=== PATIENT | female | born 1955 | race Caucasian/White ===

== ENCOUNTER 2017-07-31 16:10 | Outpatient (CLI) | payer OTHER ==
--- NOTE | 2017-08-06 11:03 | Mammography Report ---
DIGITAL SCREENING MAMMOGRAM: 07/31/2017 CLINICAL INDICATION: A 61-year-old with history of benign left breast biopsy for screening. COMPARISON: Report of previous ultrasound biopsy 09/04/2005. TECHNIQUE: Routine CC and MLO projections were obtained of the breasts. FINDINGS: The breasts demonstrate scattered fibroglandular densities bilaterally. Post-biopsy changes in the left breast are noted. Coarse, typically benign calcifications are present. No suspicious masses, clustered microcalcifications, or regions of architectural distortion are identified. IMPRESSION: BENIGN FINDINGS. RECOMMENDATION: Routine annual screening unless otherwise clinically indicated. BI-RADS CATEGORY 2 - BENIGN FINDINGS. STANDARD QUALIFYING STATEMENTS: 1. This examination was reviewed with the aid of Computer-Aided Detection (CAD) . 2. A negative or benign imaging report should not delay biopsy if clinically suspicious findings are present. Consider surgical consultation if warranted. More than 5 % of cancers are not identified by imaging. 3. Dense breasts may obscure an underlying neoplasm. TD: 08/06/2017 10:40 MARIAH
== END 2017-07-31 16:11 | disposition home or self-care (01) ==
LOC: DI.N 16:10
PROVIDERS: ATTEND Nurse Practitioner Gerontology
DX: Z12.31 Encounter for screening mammogram for malignant neoplasm of breast (principal)
CPT/HCPCS: 77067

== ENCOUNTER 2017-10-10 11:15 | Day surgery (SDC) | payer OTHER ==
[2017-10-10] MEDS ORDERED: LACTATED RINGERS 1,000 ML IV ONE (11:56)
[2017-10-10] MEDS ORDERED: MIDAZOLAM 2 MG/2 ML VIAL IVP ONE (13:35)
[2017-10-10] MEDS ORDERED: fentaNYL 250 MCG/5 ML VIAL IVP ONE (13:35)
[2017-10-10 14:34] VITALS: BP 104/59
== END 2017-10-10 11:16 | disposition home or self-care (01) ==
LOC: SDS 11:15
PROVIDERS: ATTEND Internal Medicine Gastroenterology
PROC: 0DJD8ZZ Inspection of Lower Intestinal Tract, Via Natural or Artificial Opening Endoscopic (ICD-10-PCS; principal; 2017-10-10 12:15)
DX: Z12.11 Encounter for screening for malignant neoplasm of colon (principal); E66.9 Obesity, unspecified; Z68.32 Body mass index [BMI] 32.0-32.9, adult
CPT/HCPCS: 45378; J3010; J7120

== ENCOUNTER 2018-03-04 09:29 | Outpatient (CLI) | payer OTHER | END 2018-03-04 23:59 | disposition home or self-care (01) | LOC: RT.N 09:29 | PROVIDERS: ATTEND Nurse Practitioner Gerontology | DX: Z13.9 Encounter for screening, unspecified (principal) | CPT/HCPCS: 93005 ==

== ENCOUNTER 2018-03-04 10:09 | Outpatient (CLI) | payer OTHER ==
[2018-03-04 14:36] LABS: BASOPHILS % (AUTO) 0.9 %; EOSINOPHILS # (AUTO) 0.2 10^3/uL (0.0-0.7); EOSINOPHILS % (AUTO) 4.1 %; HGB - HEMOGLOBIN 14.1 g/dL (12.0-16.0); LYMPHOCYTES # (AUTO) 1.5 10^3/uL (1.5-3.5); LYMPHOCYTES % (AUTO) 30.4 %; MEAN CORPUSCULAR HGB CONC 33.4 g/dL (32.0-36.0); MEAN PLATELET VOLUME 8.6 fL (7.9-10.8); MONOCYTES # (AUTO) 0.7 10^3/uL (0.0-1.0); MONOCYTES % (AUTO) 13.8 %; NEUTROPHILS # (AUTO) 2.5 10^3/uL (1.5-6.6); NEUTROPHILS % (AUTO) 50.8 %; PLT - PLATELET COUNT 274 10^3/uL (130-450); RED BLOOD COUNT 4.55 10^6/uL (4.20-5.40)
[2018-03-04 15:01] LABS: ALBUMIN 4.2 g/dL (3.2-5.5); ALBUMIN/GLOBULIN RATIO 1.4 (1.0-2.2); CALCIUM 9.3 mg/dL (8.5-10.3); CREATININE 0.7 mg/dL (0.4-1.0); TOTAL PROTEIN 7.3 g/dL (6.7-8.2)
== END 2018-03-04 23:59 | disposition home or self-care (01) ==
LOC: LAB.N 10:09
PROVIDERS: ATTEND Nurse Practitioner Gerontology
DX: Z13.9 Encounter for screening, unspecified (principal)
CPT/HCPCS: 36415; 80053; 85025; 87640

== ENCOUNTER 2018-04-07 09:20 | Outpatient (CLI) | payer OTHER | END 2018-04-07 09:21 | disposition home or self-care (01) | LOC: LAB 09:20 | PROVIDERS: ATTEND Orthopaedic Surgery | DX: Z01.812 Encounter for preprocedural laboratory examination (principal); M17.11 Unilateral primary osteoarthritis, right knee | CPT/HCPCS: 36415; 86850; 86900; 86901 ==

== ENCOUNTER 2018-04-08 06:53 | Inpatient (IN) | payer OTHER ==
[~2018-04-08 06:53] MED LIST: ACETAMINOPHEN 1,000 MG/100 ML 100 ML IV ONE; LACTATED RINGERS 1,000 ML IV ONE; ceFAZolin 2 GM/50 ML 2 GM/50 ML BAG IV ONE
[2018-04-08] MEDS ORDERED: EPINEPHrine 1 MG/ML AMP ONE (06:58)
[2018-04-08] MEDS ORDERED: ROPIVACAINE 0.5% PF 20 ML AMPULE ONE ×2 (06:59→10:59)
[2018-04-08] MEDS ORDERED: SODIUM CHLORIDE 0.9% 30 ML ONE (07:00)
[2018-04-08] MEDS ORDERED: BUPIVACAINE 0.5% PF 30 ML VIAL ONE (07:01)
--- NOTE | 2018-04-08 07:18 | ANESTHESIA ---
Pre-Anesthesia VS, & Labs - Diagnosis Right knee osteoarthritis - Procedure Right toal knee arthroplasty Vital Signs: Temp Pulse Resp BP Pulse Ox 36.4 C L 96 18 145/92 H 97 04/08/18 07:04 04/08/18 07:04 04/08/18 07:04 04/08/18 07:04 04/08/18 07:04 Height 5 ft 9 in Weight (kg) 103.7 kg Body Mass Index 30.9 - NPO >8 hours - Is Patient ?: No - Lab Results Lab results reviewed: Yes Home Medications and Allergies Home Medications: Ambulatory Orders No Known Home Medications 04/03/18 No Known Home Medications 04/03/18 Allergies/Adverse Reactions: Allergies Allergy/AdvReac Type Severity Reaction Status Date / Time No Known Drug Allergies Allergy Verified 10/09/17 07:36 Anes History & Medical History - Anesthetic History Anesthesia Complications: reports: No previous complications, Post-Operative Nausea/Vomiting Family history of Anesthesia Complications: Denies Family history of Malignant Hyperthermia: Denies - Medical History Cardiovascular: reports: None Pulmonary: reports: None Gastrointestinal: reports: None Urinary: reports: Incontinence, Nocturia Neuro: reports: None Musculoskeletal: reports: Osteoarthritis Endocrine/Autoimmune: reports: None Blood Disorders: reports: None Skin: reports: None Smoking Status: Never smoker Psychosocial: reports: No issues indicated - Surgical History General: Colonoscopy Eyes Ears Nose Throat (EENT): Rhinoplasty, Tonsil/Adenoidectomy Neurologic: Other (Neck fusion as a child s/p gymnastics accident) Orthopedic: Knee replacement, Other Exam General: Alert, Oriented x3 Dental: WNL Mouth Opening: Greater than 4 Fingerbreadths Neck Mobility: Normal Mallampati classification: I Thyromental Distance: greater than 6 cm Respiratory: Lungs clear Cardiovascular: Regular rate Mental/Cognitive Status: Alert/Oriented X3 Cognitive Status: Within normal limits Plan Anesthesia Type: Spinal Consent for Procedure(s) Verified and Reviewed: Yes Code Status: Attempt Resuscitation ASA classification: 2-Mild systemic disease Is this case an emergency?: No
[2018-04-08] MEDS ORDERED: MORPHINE PF 5 MG/10 ML AMP SUBQ ONE (08:57)
[2018-04-08] MEDS ORDERED: KETOROLAC 15 MG/ML VIAL IVP ONE (08:57)
[2018-04-08] MEDS ORDERED: EPINEPHrine 1 MG/ML AMP IVP ONE (08:58)
[2018-04-08] MEDS ORDERED: BUPIVACAINE 0.5% PF 30 ML VIAL SUBQ ONE ×2 (08:59)
[2018-04-08] MEDS ORDERED: ROPIVACAINE 0.2% PF 20 ML AMPULE SUBQ ONE (08:59)
[2018-04-08] MEDS ORDERED: MORPHINE PF 5 MG/10 ML AMP EP ONE (09:32)
[2018-04-08] MEDS ORDERED: LIDOCAINE-MPF 2% 5 ML VIAL IM ONE (09:32)
[2018-04-08] MEDS ORDERED: MIDAZOLAM 2 MG/2 ML VIAL IVP ONE (09:32)
[2018-04-08] MEDS ORDERED: KETOROLAC 30 MG/ML VIAL IVP ONE (09:32)
[2018-04-08] MEDS ORDERED: PROPOFOL 200 MG/20 ML VIAL IVP ONE (09:32)
[2018-04-08] MEDS ORDERED: ceFAZolin 2 GM/50 ML 2 GM/50 ML BAG IV ONE (09:32)
[2018-04-08] MEDS ORDERED: LACTATED RINGERS 1,000 ML IV ONE ×2 (10:14→11:50)
[2018-04-08] MEDS ORDERED: ACETAMINOPHEN 1,000 MG/100 ML 100 ML IV PRN (10:26)
[2018-04-08] MEDS ORDERED: ONDANSETRON 4 MG/2 ML VIAL IVP PRN (10:26)
[2018-04-08] MEDS ORDERED: PROCHLORPERAZINE 10 MG/2 ML VIAL IVP PRN (10:26)
[2018-04-08] MEDS: fentaNYL 100 MCG/2 ML VIAL ONE ×2 (10:32→10:38)
--- NOTE | 2018-04-08 10:33 | OPERATIVE REPORT ---
Operative Report - General Admit Date: 04/08/18 Procedure Date: 04/08/18 Planned Procedure: right TKA Pre-Op Diagnosis: Right knee DJD Procedure Performed: Right knee TKA Post Op Diagnosis: same - Procedure Note Primary Surgeon: sindhu Anesthesia Technique: Combo spinal/epidural Estimated Blood Loss (mL): 25
[2018-04-08] MEDS: HYDROmorphone 0.5 MG/0.5 ML SYRINGE ONE ×2 (10:46→10:54)
[2018-04-08] MEDS ORDERED: HYDROmorphone 0.5 MG/0.5 ML SYRINGE ONE (10:57)
[2018-04-08] MEDS ORDERED: ROPIVACAINE 0.5% PF 20 ML AMPULE EP ONE (10:59)
[2018-04-08] MEDS ORDERED: DEXAMETHASONE 4 MG/ML VIAL IVP ONE (10:59)
[2018-04-08] MEDS: LACTATED RINGERS 1,000 ML IV SCH ×2 (11:55→19:33)
--- NOTE | 2018-04-08 12:05 | XRAY Report ---
Reason: post op Procedure Date: 04/08/2018 Accession Number: [id number] / [id number] Procedure: XR - Knee 2 View RT CPT Code: FULL RESULT: EXAM: RIGHT KNEE RADIOGRAPHY EXAM DATE: 04/08/2018 11:51 AM. CLINICAL HISTORY: Post op. COMPARISON: KNEE 3 VIEW RT 04/02/2018 9:38 AM. TECHNIQUE: 2 views. FINDINGS: Bones and Joints: No fractures or bone lesion. A 3 component right knee arthroplasty has been performed. There is expected alignment of components. No unexpected periprosthetic lucency or other evidence of loosening. Soft Tissues: There is a small knee joint effusion and gas within the joint space, consistent with recent prior surgery. Soft tissue swelling and soft tissue gas are present. IMPRESSION: Expected immediate postoperative appearance of right knee arthroplasty. RADIA
[2018-04-08 13:39] LABS: BASOPHILS % (AUTO) 0.2 %; EOSINOPHILS # (AUTO) 0.1 10^3/uL (0.0-0.7); EOSINOPHILS % (AUTO) 0.9 %; LYMPHOCYTES # (AUTO) 1.4 10^3/uL (1.5-3.5); LYMPHOCYTES % (AUTO) 12.2 %; MEAN CORPUSCULAR HEMOGLOBIN 30.8 pg (27.0-31.0); MEAN CORPUSCULAR HGB CONC 33.6 g/dL (32.0-36.0); MEAN CORPUSCULAR VOLUME 91.5 fL (81.0-99.0); MONOCYTES # (AUTO) 0.5 10^3/uL (0.0-1.0); MONOCYTES % (AUTO) 4.3 %; NEUTROPHILS # (AUTO) 9.5 10^3/uL (1.5-6.6); NEUTROPHILS % (AUTO) 82.4 %; PLT - PLATELET COUNT 227 10^3/uL (130-450); RED CELL DISTRIBUTION WIDTH 13.1 % (12.0-15.0); WHITE BLOOD COUNT 11.5 x10^3/uL (4.8-10.8)
[2018-04-08 13:48] LABS: CALCIUM 8.4 mg/dL (8.5-10.3); CREATININE 0.6 mg/dL (0.4-1.0)
[2018-04-08] MEDS: HYDROmorphone 0.5 MG/0.5 ML SYRINGE IVP PRN (13:48)
[2018-04-08] MEDS: SODIUM CHLORIDE FLUSH 0.9% 10 ML SYRINGE IVP PRN ×3 (13:48→13:57)
[2018-04-08] MEDS: HYDROcod/ACETAM 5/325 MG TABLET PO PRN ×2 (14:52→23:38)
[2018-04-08] MEDS: ceFAZolin 2 GM/50 ML 2 GM/50 ML BAG IV SCH ×2 (14:57→23:38)
--- NOTE | 2018-04-08 15:24 | OPERATIVE REPORT ---
DATE OF SERVICE: 04/08/2018 Physician: Stewart Paez MD PREOPERATIVE DIAGNOSIS: Right knee osteoarthritis. POSTOPERATIVE DIAGNOSIS: Right knee osteoarthritis. PROCEDURE PERFORMED: Right total knee replacement arthroplasty. OPERATING SURGEON: Andrea Paez MD. ANESTHESIA: Spinal and sedation by Dr. Orellana. INDICATIONS FOR SURGERY: Amy is a 62-year-old female who has been followed in the clinic with nonop erative management of right knee arthritis. She has reached a point of diminishing response to care and increasing functional limitation to the point she desires total knee arthroplasty. The patient's prior medical history and physical exam are documented in her admission record. FINDINGS AT SURGERY: The patient's knee is found to have full extension and flexion to 110 degrees a ssociated with moderate effusion and definite crepitus of the knee and slight valgus alignment. At o pen surgery, she has extensive osteoarthritis of her knee associated with osteophytes and minor loose bodies, and she is noted to have mild synovitis of the knee and during surgery was noted to have bee y hard bone density. DESCRIPTION OF OPERATIVE PROCEDURE: The patient was taken to the operating room and was given a spin al anesthetic, followed by sedation in a supine position. A tourniquet was placed on her thigh, and her knee and leg were sterilely prepped and draped in standard fashion. The surgical timeout was und ertaken, followed by exsanguination of the limb and tourniquet inflation to 325 mmHg. The patient's knee was approached through a curved medial incision and medial parapatellar retinacular incision wit h the patella being able to be everted and dislocated laterally. This allowed flexion of the knee an d exposure of the knee joint with resection of the ACL and the anterior horns of medial and lateral m enisci. A central medullary hole was made in the femur for which the distal cutting block was applie d and situated on the femur and the distal femoral cut made. Following this, the femur sized to a si ze 9 for the Persona implant and the 4-in-1 cutting block was applied and the cuts made, protecting l igamentous tissues with retractors. Following this, the tibial area was exposed and the tibia sublux ated anteriorly, at which point the remaining meniscal posterior horns were excised and cautery used to control minor bleeding in the field. The external alignment tower was applied and adjusted for pr oper length and tibial slope and rotation. It was affixed to the tibia and the proximal cut was made , protecting the ligamentous tissue. A size D was chosen for the tibial base plate size and affixed to the proximal cut surface and drilling and a broach were inserted for shaping of the proximal tibia to receive the implant. Trial reduction was made utilizing a spacer; in this case, 12 mm was accept able, recreating stability and varus, valgus and Izzy exam. The patient's patella was exposed and measured 23 mm, after which an 8 and 1/2 resection was made. The patella was drilled, and it was det ermined that replacement would resize back to essentially her sycuan height of patella, and it tracke d beautifully with a slight lateral release performed. The trial components were removed. The knee was flushed, irrigated and all surfaces dried. The components for implantation were brought into the field, and initially the cement was placed on the tibia tray, which was cemented into place, followe d by the femoral component and then with insertion of the poly and removal of all excess cement, and finally with insertion and clamping of the patella in place. When all cement had hardened and excess was removed, clamps were removed and the knee was cycled and was stable and proper seating and engage ment were noted. The knee was flushed again and irrigated and the tourniquet was deflated. Minor ca utery was used to control bleeding, followed by closure with FiberWire closure of the capsule of the knee, followed by interrupted Vicryl closure of subcutaneous tissue and Monocryl closure of skin. A sterile dressing was applied, followed by a bulky compression dressing, and the patient was then flores sported to an OR [place] and taken to the recovery room in stable condition. ESTIMATED BLOOD LOSS: 25 mL COMPLICATIONS: None. COUNTS: Sponge and needle counts correct. IMPLANTS USED: The patient's total knee arthroplasty is a cemented Persona knee, size 9. Normal femo ral component, a size D baseplate tibial tray with a 12 mm medial congruent poly insert, the patella being a 29 mm diameter, 8.5 mm thick, all poly patella. Cement used was Joceline cement with antibioti cs. TD: 04/08/2018 14:04
[2018-04-08] MEDS: ASPIRIN 325 MG TABLET PO SCH (17:11)
[2018-04-08] MEDS: SODIUM CHLORIDE FLUSH 0.9% 10 ML SYRINGE IVP SCH ×2 (17:12→23:42)
[2018-04-09] MEDS: HYDROcod/ACETAM 5/325 MG TABLET PO PRN ×4 (04:27→21:26)
[2018-04-09] MEDS: LACTATED RINGERS 1,000 ML IV SCH (06:27)
--- NOTE | 2018-04-09 07:02 | PROVIDER PROGRESS NOTE ---
Subjective - General Admit Date: 04/08/18 Procedure Date: 04/08/18 Post Op Days: 1 - Review of Systems Wound/Incisions: positive: Dressing dry and intact Musculoskeletal: positive: Joint pain, Joint swelling Objective - Patient Data Reviewed Vital Signs: Yes Vital Signs: Vital Signs x48h Temp Pulse Resp BP Pulse Ox 04/09/18 04:18 36.6 C 66 16 116/62 94 04/08/18 23:35 36.5 C 64 18 112/64 93 Weight: Weight 04/07/18 04/08/18 04/09/18 23:59 23:59 23:59 Weight (kg) 103.7 kg Intake & Output: Intake and Output Totals x24h 04/07/18 04/08/18 04/09/18 23:59 23:59 23:59 Intake Total 4040 1050 Output Total 1550 1050 Balance 2490 0 - Lab Results Lab Results: 04/08/18 13:30 04/08/18 13:30 Other Lab Results: Lab Results x24hrs 04/08/18 04/08/18 Range/Units 13:30 13:30 WBC 11.5 H (4.8-10.8) x10^3/uL RBC 3.90 L (4.20-5.40) 10^6/uL Hgb 12.0 (12.0-16.0) g/dL Hct 35.7 L (37.0-47.0) % MCV 91.5 (81.0-99.0) fL MCH 30.8 (27.0-31.0) pg MCHC 33.6 (32.0-36.0) g/dL RDW 13.1 (12.0-15.0) % Plt Count 227 (130-450) 10^3/uL MPV 8.0 (7.9-10.8) fL Neut # (Auto) 9.5 H (1.5-6.6) 10^3/uL Lymph # (Auto) 1.4 L (1.5-3.5) 10^3/uL [place] # (Auto) 0.5 (0.0-1.0) 10^3/uL Eos # (Auto) 0.1 (0.0-0.7) 10^3/uL Baso # (Auto) 0.0 (0.0-0.1) 10^3/uL Absolute Nucleated RBC 0.00 x10^3/uL Nucleated RBC % 0.0 /100WBC Sodium 138 (135-145) mmol/L Potassium 3.8 (3.5-5.0) mmol/L Chloride 105 (101-111) mmol/L Carbon Dioxide 27 (21-32) mmol/L Anion Gap 6.0 (6-13) BUN 17 (6-20) mg/dL Creatinine 0.6 (0.4-1.0) mg/dL Estimated GFR (MDRD) 102 (>89) Glucose 139 H (70-100) mg/dL Calcium 8.4 L (8.5-10.3) mg/dL - Imaging Results Radiology Imaging: positive: EMP read indepedently - Current Medications Current Medications: Current Medications Generic Name Dose Route Start Last Admin Trade Name Freq PRN Reason Stop Dose Admin Hydrocodone Bitart/Acetaminophen 1 tab 04/08/18 10:04/09/18 04:27 [place] 5/325 PO 1 tab Q4HR PRN Administration PAIN Aspirin 325 mg 04/08/18 17:00 04/08/18 17:11 Crissy PO 325 mg BIDWM STEPHANIA Administration Hydromorphone HCl 0.5 mg 04/08/18 10:04/08/18 13:48 Dilaudid Inj Syringe IVP 0.5 mg Q2H PRN Administration PAIN Lactated Ringer's 1,000 mls @ 100 mls/hr 04/08/18 11:00 04/09/18 06:27 Lr IV 100 mls/hr .Q10H STEPHANIA Administration Ondansetron HCl 4 mg 04/08/18 10:04/08/18 13:48 Zofran Inj IVP 4 mg Q6HR PRN Administration Nausea / Vomiting Sodium Chloride 10 ml 04/08/18 17:00 04/08/18 23:42 Normal Saline Flush 0.9% IVP Not Given 0100,0900,1700 STEPHANIA Sodium Chloride 10 ml 04/08/18 10:04/08/18 13:57 Normal Saline Flush 0.9% IVP 10 ml PRN PRN Administration NEEDED PER PROVIDER ORDERS - Physical Exam Wound/Incisions: positive: Dressing dry and intact General Appearance: positive: No acute distress Extremities: positive: Joint swelling Neurologic/Psychiatric: positive: Oriented x3, CN's nml (2-12), Motor nml, Sensation nml Impression/Plan - Problem List Problem List: POD #1 Pt is fairly comfortable. She is ready to begin PT Will plan on advancing diet, and d/c IV to saline lock.
[2018-04-09] MEDS: SODIUM CHLORIDE FLUSH 0.9% 10 ML SYRINGE IVP SCH ×5 (07:46→23:33)
[2018-04-09] MEDS: ASPIRIN 325 MG TABLET PO SCH ×2 (08:24→17:16)
[2018-04-09] MEDS: HYDROmorphone 0.5 MG/0.5 ML SYRINGE IVP PRN (10:32)
--- NOTE | 2018-04-09 11:18 | PROVIDER PROGRESS NOTE ---
Subjective - Prog Note Date Prog Note Date: 04/09/18 Prog Note Time: 11:17 - Subjective Pt reports feeling: Improved (This patient is expected to be discharged before 96 hours of inpatient hospitalizationh) Objective - Vital Signs/Intake & Output Vital Signs: Vital Signs x48h Temp Pulse Resp BP Pulse Ox 04/09/18 07:53 36.9 C 69 16 118/58 L 96 04/09/18 04:18 36.6 C 66 16 116/62 94 Intake & Output: Intake & Output 04/06/18 04/07/18 04/08/18 04/09/18 23:59 23:59 23:59 23:59 Intake Total 4040 1400 Output Total 1550 1450 Balance 2490 -50 - Lab Results Fish Bones: 04/08/18 13:30 04/08/18 13:30 Other Labs: Lab Results x24hrs 04/08/18 04/08/18 Range/Units 13:30 13:30 WBC 11.5 H (4.8-10.8) x10^3/uL RBC 3.90 L (4.20-5.40) 10^6/uL Hgb 12.0 (12.0-16.0) g/dL Hct 35.7 L (37.0-47.0) % MCV 91.5 (81.0-99.0) fL MCH 30.8 (27.0-31.0) pg MCHC 33.6 (32.0-36.0) g/dL RDW 13.1 (12.0-15.0) % Plt Count 227 (130-450) 10^3/uL MPV 8.0 (7.9-10.8) fL Neut # (Auto) 9.5 H (1.5-6.6) 10^3/uL Lymph # (Auto) 1.4 L (1.5-3.5) 10^3/uL [place] # (Auto) 0.5 (0.0-1.0) 10^3/uL Eos # (Auto) 0.1 (0.0-0.7) 10^3/uL Baso # (Auto) 0.0 (0.0-0.1) 10^3/uL Absolute Nucleated RBC 0.00 x10^3/uL Nucleated RBC % 0.0 /100WBC Sodium 138 (135-145) mmol/L Potassium 3.8 (3.5-5.0) mmol/L Chloride 105 (101-111) mmol/L Carbon Dioxide 27 (21-32) mmol/L Anion Gap 6.0 (6-13) BUN 17 (6-20) mg/dL Creatinine 0.6 (0.4-1.0) mg/dL Estimated GFR (MDRD) 102 (>89) Glucose 139 H (70-100) mg/dL Calcium 8.4 L (8.5-10.3) mg/dL
[2018-04-09] MEDS: KETOROLAC 30 MG/ML VIAL IVP PRN ×2 (12:42→18:39)
[2018-04-09] MEDS: SODIUM CHLORIDE FLUSH 0.9% 10 ML SYRINGE IVP PRN (18:39)
[2018-04-10] MEDS: KETOROLAC 30 MG/ML VIAL IVP PRN ×3 (00:47→17:24)
[2018-04-10] MEDS: SODIUM CHLORIDE FLUSH 0.9% 10 ML SYRINGE IVP PRN ×2 (00:48→17:24)
[2018-04-10] MEDS: HYDROcod/ACETAM 5/325 MG TABLET PO PRN ×4 (02:01→18:50)
[2018-04-10 05:48] LABS: BASOPHILS % (AUTO) 0.4 %; EOSINOPHILS # (AUTO) 0.2 10^3/uL (0.0-0.7); EOSINOPHILS % (AUTO) 1.6 %; HGB - HEMOGLOBIN 11.5 g/dL (12.0-16.0); LYMPHOCYTES # (AUTO) 2.2 10^3/uL (1.5-3.5); LYMPHOCYTES % (AUTO) 23.3 %; MEAN CORPUSCULAR HEMOGLOBIN 31.1 pg (27.0-31.0); MEAN CORPUSCULAR VOLUME 94.1 fL (81.0-99.0); MEAN PLATELET VOLUME 8.1 fL (7.9-10.8); MONOCYTES # (AUTO) 0.9 10^3/uL (0.0-1.0); MONOCYTES % (AUTO) 9.4 %; NEUTROPHILS # (AUTO) 6.2 10^3/uL (1.5-6.6); NEUTROPHILS % (AUTO) 65.3 %; PLT - PLATELET COUNT 210 10^3/uL (130-450); RED BLOOD COUNT 3.71 10^6/uL (4.20-5.40); RED CELL DISTRIBUTION WIDTH 13.1 % (12.0-15.0); WHITE BLOOD COUNT 9.5 x10^3/uL (4.8-10.8)
[2018-04-10] MEDS: SODIUM CHLORIDE FLUSH 0.9% 10 ML SYRINGE IVP SCH ×3 (08:59→23:30)
[2018-04-10] MEDS: ASPIRIN 325 MG TABLET PO SCH ×2 (08:59→17:24)
[2018-04-10] MEDS: SENNA 8.6 MG TABLET PO SCH (08:59)
[2018-04-10] MEDS: DOCUSATE SODIUM 100 MG CAPSULE PO PRN (08:59)
--- NOTE | 2018-04-10 09:26 | PROVIDER PROGRESS NOTE ---
Subjective - General Admit Date: 04/08/18 Procedure Date: 04/08/18 Post Op Days: 2 - Review of Systems Wound/Incisions: positive: Dressing dry and intact Musculoskeletal: positive: Joint pain, Joint swelling Objective - Patient Data Reviewed Vital Signs: Yes Vital Signs: Vital Signs x48h Temp Pulse Resp BP BP Pulse Ox 04/10/18 07:44 36.5 C 79 20 121/64 96 04/10/18 04:00 36.9 C 84 20 141/72 H 95 Weight: Weight 04/08/18 04/09/18 04/10/18 23:59 23:59 23:59 Weight (kg) 103.7 kg Intake & Output: Intake and Output Totals x24h 04/08/18 04/09/18 04/10/18 23:59 23:59 23:59 Intake Total 4040 2760 370 Output Total 1550 1450 Balance 2490 1310 370 - Lab Results Lab Results: 04/10/18 05:10 04/08/18 13:30 Other Lab Results: Lab Results x24hrs 04/10/18 Range/Units 05:10 WBC 9.5 (4.8-10.8) x10^3/uL RBC 3.71 L (4.20-5.40) 10^6/uL Hgb 11.5 L (12.0-16.0) g/dL Hct 34.9 L (37.0-47.0) % MCV 94.1 (81.0-99.0) fL MCH 31.1 H (27.0-31.0) pg MCHC 33.0 (32.0-36.0) g/dL RDW 13.1 (12.0-15.0) % Plt Count 210 (130-450) 10^3/uL MPV 8.1 (7.9-10.8) fL Neut # (Auto) 6.2 (1.5-6.6) 10^3/uL Lymph # (Auto) 2.2 (1.5-3.5) 10^3/uL [place] # (Auto) 0.9 (0.0-1.0) 10^3/uL Eos # (Auto) 0.2 (0.0-0.7) 10^3/uL Baso # (Auto) 0.0 (0.0-0.1) 10^3/uL Absolute Nucleated RBC 0.01 x10^3/uL Nucleated RBC % 0.1 /100WBC - Current Medications Current Medications: Current Medications Generic Name Dose Route Start Last Admin Trade Name Freq PRN Reason Stop Dose Admin Hydrocodone Bitart/Acetaminophen 1 tab 04/08/18 10:26 04/10/18 06:05 [place] 5/325 PO 1 tab Q4HR PRN Administration PAIN Aspirin 325 mg 04/08/18 17:00 04/10/18 08:59 Crissy PO 325 mg BIDWM STEPHANIA Administration Docusate Sodium 100 mg 04/08/18 10:26 04/10/18 08:59 Colace 100mg Capsule PO 100 mg BID PRN Administration Constipation Hydromorphone HCl 0.5 mg 04/08/18 10:26 04/09/18 10:32 Dilaudid Inj Syringe IVP 0.5 mg Q2H PRN Administration PAIN Ketorolac Tromethamine 30 mg 04/09/18 08:39 04/10/18 00:47 Toradol Inj (30mg) IVP 04/10/18 18:00 30 mg Q6HR PRN Administration PAIN Ondansetron HCl 4 mg 04/08/18 10:26 04/08/18 13:48 Zofran Inj IVP 4 mg Q6HR PRN Administration Nausea / Vomiting Senna 8.6 - 17.2 mg 04/10/18 09:00 04/10/18 08:59 Senokot PO 8.6 mg DAILY STEPHANIA Administration Sodium Chloride 10 ml 04/08/18 17:00 04/10/18 08:59 Normal Saline Flush 0.9% IVP 10 ml 0100,0900,1700 STEPHANIA Administration Sodium Chloride 10 ml 04/08/18 10:26 04/10/18 00:48 Normal Saline Flush 0.9% IVP 10 ml PRN PRN Administration NEEDED PER PROVIDER ORDERS - Physical Exam Extremities: positive: Joint swelling Neurologic/Psychiatric: positive: Oriented x3, CN's nml (2-12), Motor nml, Sensation nml, Mood/affect nml Impression/Plan - Problem List Problem List: POD #2: Pt is having some pain and occasional nausea with activity (PT) plan to have patient continue with PT. D/C to home tomorrow. dressing change prior to d/c
[2018-04-10] MEDS ORDERED: MAGNESIUM HYDROXIDE 2,400 MG/30 ML UDC PO ONE (18:00)
[2018-04-10] MEDS: ACETAMINOPHEN 325 MG TABLET PO PRN (23:29)
[2018-04-11] MEDS: DOCUSATE SODIUM 100 MG CAPSULE PO PRN (06:44)
[2018-04-11] MEDS: ACETAMINOPHEN 325 MG TABLET PO PRN (06:44)
[2018-04-11] MEDS: SODIUM CHLORIDE FLUSH 0.9% 10 ML SYRINGE IVP SCH (08:50)
[2018-04-11] MEDS: ASPIRIN 325 MG TABLET PO SCH (08:50)
--- NOTE | 2018-04-11 10:16 | Discharge Plan ---
Discharge Plan Disposition: 01 Home, Self Care Condition: Good Prescriptions: HYDROcod/ACETAM [[place] ] 1 tab PO Q4HR PRN #30 tablet PRN Reason: Pain Diet: Regular Shower Restrictions: Yes (cover knee dressing) Driving Restrictions: Yes (no driving) Assistance Devices: Walker Weight Bearing: Full Weight Instruction Topics: Knee Replace Total Dc No Smoking: If you smoke, Please STOP! Call for help. Follow-up with: Janessa Nicole ARNP [Primary Care Provider] - Stewart Paez MD [Provider Admit Priv/Credential] -
[2018-04-11] MEDS: HYDROcod/ACETAM 5/325 MG TABLET PO PRN (11:22)
[2018-04-11] MEDS: SENNA 8.6 MG TABLET PO SCH (11:30)
[2018-04-11 11:37] VITALS: BP 97/57
== END 2018-04-08 12:15 | disposition home or self-care (01) | DRG 470 ==
LOC: MS2 06:53
PROVIDERS: ADMIT Orthopaedic Surgery; ATTEND Orthopaedic Surgery
PROC: 3E0T3BZ Introduction of Anesthetic Agent into Peripheral Nerves and Plexi, Percutaneous Approach (ICD-10-PCS; 2018-04-08)
PROC: 0SRC0J9 Replacement of Right Knee Joint with Synthetic Substitute, Cemented, Open Approach (ICD-10-PCS; principal; 2018-04-08 08:00)
DX: M17.11 Unilateral primary osteoarthritis, right knee (principal); M65.9 Synovitis and tenosynovitis, unspecified; M23.41 Loose body in knee, right knee; M25.461 Effusion, right knee
CPT/HCPCS: 36415; 80048; 85025

== ENCOUNTER 2018-08-15 12:07 | Outpatient (CLI) | payer OTHER ==
--- NOTE | 2018-08-19 13:17 | Mammography Report ---
Reason: ENCNTR SCREEN MAMMOGRAM FOR MALIGNANT NEOPLASM Procedure Date: 08/15/2018 Accession Number: [id number] / [id number] Procedure: MGN - Screening Mammo Dig Bilat CPT Code: FULL RESULT: EXAM: Screening Mammo Dig Bilat DATE: 08/15/2018 12:33 PM CLINICAL HISTORY: Routine screening; history of left breast surgery. TECHNIQUE: (B) - Bilateral CC and MLO views were obtained. COMPARISON: 07/31/2017, 11/07/2012, 11/01/2011 and 09/04/2010. PARENCHYMAL PATTERN: (A) - The breasts demonstrate scattered fibroglandular densities bilaterally. FINDINGS: Postsurgical changes left breast stable. Scattered bilateral nodules also stable. There are no suspicious masses, calcifications, or areas of distortion. IMPRESSION: Benign findings. BI-RADS category 2. RECOMMENDATION: (ANNUAL) - Recommend routine annual screening mammography. BI-RADS CATEGORY: (2) - Benign Findings. STANDARD QUALIFYING STATEMENTS: 1. This examination was not reviewed with the aid of Computer-Aided Detection (CAD). 2. A negative or benign imaging report should not preclude biopsy if clinically suspicious findings are present. 3. Dense breasts may obscure an underlying neoplasm. 4. This examination was reviewed without the aid of 3D breast imaging (tomosynthesis).
== END 2018-08-15 12:08 | disposition home or self-care (01) ==
LOC: DI.N 12:07
PROVIDERS: ATTEND Nurse Practitioner Gerontology
DX: Z12.31 Encounter for screening mammogram for malignant neoplasm of breast (principal)
CPT/HCPCS: 77067

== ENCOUNTER 2019-08-14 08:50 | Outpatient (CLI) | payer OTHER ==
[2019-08-14 13:26] LABS: BASOPHILS % (AUTO) 0.6 %; EOSINOPHILS # (AUTO) 0.2 10^3/uL (0.0-0.7); EOSINOPHILS % (AUTO) 2.2 %; HGB - HEMOGLOBIN 13.9 g/dL (12.0-16.0); LYMPHOCYTES # (AUTO) 1.2 10^3/uL (1.5-3.5); LYMPHOCYTES % (AUTO) 17.2 %; MEAN CORPUSCULAR HEMOGLOBIN 29.7 pg (27.0-31.0); MEAN CORPUSCULAR VOLUME 95.7 fL (81.0-99.0); MEAN PLATELET VOLUME 10.4 fL (7.9-10.8); MONOCYTES # (AUTO) 0.8 10^3/uL (0.0-1.0); MONOCYTES % (AUTO) 10.5 %; NEUTROPHILS % (AUTO) 69.2 %; PLT - PLATELET COUNT 270 10^3/uL (130-450); RED BLOOD COUNT 4.68 10^6/uL (4.20-5.40); RED CELL DISTRIBUTION WIDTH 12.8 % (12.0-15.0); WHITE BLOOD COUNT 7.2 x10^3/uL (4.8-10.8)
[2019-08-14 14:24] LABS: ALBUMIN/GLOBULIN RATIO 1.1 (1.0-2.2); ALKALINE PHOSPHATASE 70 IU/L (42-121); ALT ALANINE AMINOTRANSFERASE 30 IU/L (10-60); AST ASPARTATE AMINOTRANSFERASE 23 IU/L (10-42); BUN - BLOOD UREA NITROGEN 17 mg/dL (6-20); CALCIUM 9.3 mg/dL (8.5-10.3); CARBON DIOXIDE - CO2 29 mmol/L (21-32); CHLORIDE 104 mmol/L (101-111); CHOL/HDL RATIO 4.1 (<4.4); CHOLESTEROL 253 mg/dL; CREATININE 0.7 mg/dL (0.4-1.0); GLUCOSE 100 mg/dL (70-100); HDL CHOLESTEROL 62 mg/dL; LDL CHOLESTEROL,CALCULATED 163 mg/dL; LDL/HDL RATIO 2.6 (<4.4); SODIUM 140 mmol/L (135-145); TOTAL PROTEIN 7.5 g/dL (6.7-8.2); VLDL CHOLESTEROL 28 mg/dL
== END 2019-08-14 23:59 | disposition home or self-care (01) ==
LOC: LAB.WCP 08:50
PROVIDERS: ATTEND Nurse Practitioner
DX: Z00.00 Encounter for general adult medical examination without abnormal findings (principal); R40.0 Somnolence; Z13.228 Encounter for screening for other metabolic disorders; R51 Headache; Z13.220 Encounter for screening for lipoid disorders
CPT/HCPCS: 36415; 80050; 80061; 83721

== ENCOUNTER 2019-11-12 15:22 | Outpatient (CLI) | payer OTHER ==
[2019-11-12 16:16] VITALS: BP 120/78
--- NOTE | 2019-11-12 16:16 | SLEEP CARE CONSULTATION ---
Information from patient questionnaire entered by Gabriela Peres. I have reviewed and concur with the information entered by Gabriela Peres. This document represents the service I personally performed and the decisions made by me, Sonia Courtney ARNP. History of Present Illness Service Date and Time: 11/12/2019 1522 Reason for Visit: New patient Chief Complaint: reports: Insomnia (hard to quiet mind for sleep; can't stay asleep), Unrefreshed sleep, Snoring, Excessive daytime sleepiness, Fatigue, Frequent awakenings at night. denies: Observed pauses in breathing Date of Onset: Usual bedtime: 830 PM-10 PM; mostly 830-9PM Time it takes to fall asleep: Minute-can't stay asleep Snores at night: Yes (Been told I do) Observed to quit breathing while asleep: No (lives alone) Number of times waking at night: Several Reasons for waking at night: reports: Bathroom, Other (Dreams; not sure why she wakes up; doesn't feel she has been asleep). denies: Choking, Snoring, Gasping for air Toss, Turn, or Twitch while sleeping: Yes Recalls having dreams: Yes Usually gets out of bed at: 430 AM-5AM Feels refreshed in the morning: No (Usually) Morning headache: Yes (About 1-2 hours before alarm) Sleepy or fatigued during the day: Yes Ever fallen asleep while driving: Yes (Nodding off; work is only 3 minutes from home) Takes day naps: No Dreams during day naps: No Prior sleep studies: No Additional HPI information: I had the pleasure of seeing EARLENE MCFADDEN today regarding the possibility of her having a sleep disorder. Her current complaints are insomnia, loud snoring, unrefreshed sleep, frequent awakenings at night, fatigue and excessive daytime sleepiness. She was talking to a doctor she works with who thought she should get it checked out. She has a history of nasal surgery for a lump on her nose. After the surgery, she was unable to breathe through her nose. She saw another ENT who told her the last doctor removed all her cartilage so her nostrils can just collapse with normal breathing. She had another surgery where the transplanted some cartilage from her ears to her nose to help keep her nasal passages open. She states it has helped somewhat but she has to purposely inhale to breathe through her nose and she is a mouth breather at night. She wakes up several times a night to drink water to moisten her mouth. She drinks alcohol socially. She states she can fall asleep easily by sitting down and closing her eyes. She is frequently awakened 1-2 hours before her morning alarm with headaches. She states she does not feel these are stress related as she feels her financial and life situations are better now than in the past. - Parasomnia Symptoms Ever been unable to move upon waking from sleep: No Walks in sleep: No Talks in sleep: Yes Ever acted out dreams in sleep: Yes Ever felt weak in the knees when startled or emotional: No Bothered by creepy, crawly, restless sensations in legs: No Problems with memory or concentration: Yes (forgetful) Subjective Initial [place] Sleepiness Scale score: 19 (in 2019) Past Medical History Past Medical History: reports: Other (Carpal tunnel; two knee replacement, last one a yr ago; neck fusion; nasal surgeries). 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 Patient is Single and lives in [place]. Have you smoked in the past 12 months: No Alcohol use: Yes Alcohol amount and frequency: 2-3 drinks a week; social drinking mostly Caffeine use: Yes Caffeine amount and frequency: one cup coffee about 10 oz Family History Family history of sleep disordered breathing: Yes (Brother) Family Hx Sleep Apnea: Sibling: Snoring Allergies and Home Medications Drug allergies reviewed: Yes (NKDA) Home medication list reviewed: Yes Allergy and home medication list: melatonin prn Biotin Review of Systems Weight gain over past 5 years: 10-15 up and down Cardiovascular: reports: leg or foot swelling (Foot and ankles). denies: high blood pressure, palpitations, chest pain, irregular heart rate or pulse Respiratory: denies: shortness of breath, wheeze, chronic cough Gastrointestinal: reports: heartburn (rarely). denies: difficulty swallowing Urinary: reports: incontinence (at times), frequency Neurological: reports: headaches, gait or balance problems (think I do-2 knee replacements). denies: seizure, head trauma, speech dysfunction Psychiatric: denies: Attention Deficit Hyperactivity, anxiety, depression, mood disorder, claustrophobia Ear/Nose/Throat: reports: nasal congestion, sinus problems (is not able to breathe through her nose due to it collapsing post surgery), dry mouth/throat (through the night; mouth breathing ), tonsillectomy, wisdom teeth removed. denies: nose bleeds, hoarseness, injury to nose Endocrine: denies: thyroid disease Musculoskeletal: reports: joint pain, mobility problems Immunologic: reports: sneezing Physical Exam Blood Pressure: 120/78 Cuff size: long Heart Rate: 73 O2 Saturation: 98 Height: 5 ft 8 in Weight: 226 lb Body Mass Index: 34.3 BMI Classification: Obese HEENT: No craniofacial malformation Nostrils: partially obstructed Turbinates: normal Septum: midline Mouth and throat: normal Soft palate: normal Hard palate: normal Uvula: normal Uvula visualization: 100% Mallampati Class I Tongue: normal in size Tonsils: absent bilaterally Chin and jaw: normal size and position Neck: normal w/o lymphadenopathy or thyromegaly Heart: regular rate and rhythm Lungs: clear bilaterally Impression and Plan 1. Suspected Obstructive Sleep Apnea-Hypopnea Syndrome, as suggested by a history of loud and irregular snoring, morning headache, frequent awakening during the night, unrefreshed sleep, cognitive impairment, and excessive daytime sleepiness. Narrow oropharynx and obesity are common predisposing factors for obstructive sleep apnea-hypopnea syndrome. I recommend proceeding to polysomnography to confirm the diagnosis and to assess severity. If the patient has significant sleep disordered breathing, a manual CPAP titration study will also be performed to find the optimal treatment pressure. I informed the patient of what the sleep studies involve and after some discussion, obtained agreement to proceed. The pathophysiology of obstructive sleep apnea-hypopnea syndrome was discussed with the patient and health risks of cardiovascular and cerebrovascular disease if not treated. AAS brochure for obstructive sleep apnea-hypopnea syndrome given and reviewed. Risks of drowsy driving discussed in detail and patient advised to avoid long distance driving and to casing puller at the first sign of drowsiness. Patient agreed to plan. [facility] drowsy driving brochure given. * Schedule polysomnography +- manual CPAP titration study. * Avoid long distance driving or driving when feeling sleepy. * Avoid alcohol, sedative and muscle relaxant around bedtime. * Attempt to lose weight. * Review instructions provided by trained office staff on how to prepare for the sleep study. * Return for follow-up after sleep study completed. Visit Type: In Office Time Spent with Patient (minutes): 37 Provider Statement: I spent 100% of the Face to Face Visit with the patient with greater than 50% spent counseling the patient and coordination of care.
== END 2019-11-12 15:23 | disposition home or self-care (01) ==
LOC: SC 15:22
PROVIDERS: ATTEND Nurse Practitioner Family
DX: R06.83 Snoring (principal); G47.10 Hypersomnia, unspecified; G47.8 Other sleep disorders; E66.9 Obesity, unspecified; Z68.34 Body mass index [BMI] 34.0-34.9, adult
CPT/HCPCS: 99204; 99212

== ENCOUNTER 2019-11-18 14:48 | Outpatient (CLI) | payer OTHER ==
--- NOTE | 2019-11-19 07:29 | Mammography Report ---
BILATERAL DIGITAL SCREENING MAMMOGRAM 3D/2D: 11/18/2019 CLINICAL: Routine screening. Comparison is made to exams dated: 08/15/2018 mammogram, 07/31/2017 mammogram, 05/19/2015 mammogram, and 05/05/2014 mammogram - [facility]. The tissue of both breasts is predominantly fat ty. There are benign post operative findings in the left breast. No significant masses, calcifications, or other findings are seen in either breast. There has been no significant interval change. IMPRESSION: BENIGN There is no mammographic evidence of malignancy. A 1 year screening mammogram is recommended. This exam was interpreted at Station ID: [id number]. NOTE: For mammograms, a report in lay terms will be sent to the patient. Approximately 15% of breast malignancies will not be visualized mammographically. In the management of a palpable breast mass, a negative mammogram must not discourage biopsy of a clinically suspicious lesion. Electronically Signed By: Deandre Torres M.D. aty/penrad:11/18/2019 16:25:34 ACR BI-RADS Category 2: Benign Finding(s) 3342F PARENCHYMAL PATTERN: (F) - The breast(s) demonstrate(s) diffuse fatty replacement. BI-RADS CATEGORY: (2) - 2 RECOMMENDATION: (ANNUAL) - Recommend routine annual screening mammography. [id number] 1 year screening LATERALITY: (B)
== END 2019-11-18 14:49 | disposition home or self-care (01) ==
LOC: DI.N 14:48
PROVIDERS: ATTEND Nurse Practitioner
DX: Z12.31 Encounter for screening mammogram for malignant neoplasm of breast (principal)
CPT/HCPCS: 77063; 77067

== ENCOUNTER 2019-12-11 19:32 | Outpatient (CLI) | payer OTHER | END 2019-12-11 19:33 | disposition home or self-care (01) | LOC: SC 19:32 | PROVIDERS: ATTEND Nurse Practitioner Family | DX: G47.33 Obstructive sleep apnea (adult) (pediatric) (principal); E66.9 Obesity, unspecified; Z68.34 Body mass index [BMI] 34.0-34.9, adult | CPT/HCPCS: 95810 ==

== ENCOUNTER 2019-12-24 16:47 | Outpatient (CLI) | payer OTHER ==
--- NOTE | 2019-12-24 17:25 | SLEEP CARE CONSULTATION ---
Information from patient questionnaire entered by Gabriela Peres. I have reviewed and concur with the information entered by Gabriela Peres. This document represents the service I personally performed and the decisions made by me, Sonia Courtney ARNP. History of Present Illness Service Date and Time: 12/24/20191646 Initial [place] Sleepiness Scale score: 19 (in 2020) Current [place] Sleepiness Scale score: 18 Additional HPI information: EARLENE MCFADDEN returns for follow up and results of the recently performed polysomnography. Her study showed that she has mild obstructive sleep apnea with an average AHI of 5.2 and a victor hugo oxygen saturation of 79%. Her supine AHI was 9.0 and her non-supine AHI was 0.31. I explained the pathophysiology behind obstructive sleep apnea. We then spent quite a bit of time discussing different treatment options. For mild obstructive sleep apnea, surgery and oral appliance are alternatives to nasal CPAP therapy but in moderate or severe cases, nasal CPAP is the most effective and reliable treatment. Because apnea is primarily in supine position, then positional management therapy could be effective. Methods discussed such as positioning with pillows, using a T-shirt with tennis balls in the back, and shown commercial products that have a pillow format on back to prevent supine sleep. I reviewed the impact of weight changes on sleep apnea and strongly recommended losing weight. After some discussion, the patient opted to go with the nasal CPAP therapy. Nasal autoCPAP set at 4-15 cmH20 will be ordered with rationale explained. A manual titration study will be ordered if unable to find optimal pressure with office adjustments. I explained how CPAP machine works with sample devices [employer] and [employer] [id number] and what to expect when using the machine. Using CPAP every night in order to get used to it was emphasized. Patient advised to put CPAP mask on before getting into bed so as not to fall asleep without CPAP. To assist acclimation to CPAP use, it could also be used for a short time during day while reading or watching TV. The patient was instructed to call the CPAP supplier to discuss any mechanical problem that may occur. If the mask given is uncomfortable or is difficult to keep on through the night even with adjustment, contact the CPAP supplier as many will replace with another mask style if notified before 30 days. If snoring or perceives is not getting enough air or too much air from the machine, notify this office. AAS patient education PAP tips and Non Pap treatment pamphlets reviewed and given to patient. Patient counseled not drink alcohol less than 4 hours before bedtime as it can increase snoring and apnea. Patient was cautioned about risks of drowsy driving until sleepiness symptoms resolve. Sleep Study - Results Type of Sleep Study: Polysomnography Prior sleep studies: No Polysomnography/Home Sleep Study results: IMPRESSION: The quality of the study is good. The patient had normal sleep efficiency. The sleep architecture was normal as well. Respiratory monitoring showed mild obstructive sleep apnea- hypopnea (AHI = 5.2) associated with oxyhemoglobin desaturation and moderate hypoxia (victor hugo oxygen saturation of 79%) but not sleep fragmentation. The respiratory events occurred almost exclusively during supine REM sleep (supine AHI = 9.0; non-supine = 0.31). Snore was moderate in intensity. There was no significant periodic leg movement of sleep. Cardiac rhythm was normal sinus rhythm with occasional premature ventricular c ontractions. No abnormal behavior (parasomnia) observed during the night. Allergies and Home Medications Drug allergies reviewed: Yes (NKDA) Home medication list reviewed: Yes (no changes) Review of Systems Review of systems same as previous: Yes (no changes) Physical Exam Heart Rate: 71 O2 Saturation: 98 Height: 5 ft 8 in Weight: 222 lb Body Mass Index: 33.7 BMI Classification: Obese Impression and Plan 1. Obstructive Sleep Apnea-Hypopnea Syndrome, mild, with lowest oxygen saturation of 79%. Obviously this is the cause of the patients symptoms of unrefreshed sleep, and excessive daytime sleepiness. Positive pressure therapy could benefit her overall health and help to prevent cardiovascular or cerebrovascular events. As mentioned above, the patient will be started on nasal autoCPAP therapy with pressure set at 4-15 cmH2O. A manual titration study will be completed if unable to find optimal treatment pressure with office adjustments. Compliance guidelines also reviewed. A copy of compliance guidelines will be given for reference at check out. Because the apnea is more severe supine, I instructed to avoid sleeping supine using pillow positioning until able to start CPAP use. 2. Premature ventricular contractions, occasional. PVCs can be normal but with her family history of cardiovascular disease she was advised to talk to her PCP to determine if any further evaluation is needed. * Nasal auto CPAP therapy, pressure at 4-15 cm H2O. * Follow up with PCP for PVCs * Attempt to lose weight. * Avoid alcohol consumption near bedtime. * Avoid supine sleep until using CPAP. * The patient is again cautioned about driving until sleepiness completely resolves. * Return one month after CPAP obtained. I will assess response to therapy and compliance at that time. Counseling Topics: Sleeping position, Weight loss health impact Follow up with: PCP Visit Type: In Office Time Spent with Patient (minutes): 24 Provider Statement: I spent 100% of the Face to Face Visit with the patient with greater than 50% spent counseling the patient and coordination of care.
== END 2019-12-24 16:48 | disposition home or self-care (01) ==
LOC: SC 16:47
PROVIDERS: ATTEND Nurse Practitioner Family
DX: G47.33 Obstructive sleep apnea (adult) (pediatric) (principal); I49.3 Ventricular premature depolarization; E66.9 Obesity, unspecified; Z68.33 Body mass index [BMI] 33.0-33.9, adult
CPT/HCPCS: 99212; 99213

== ENCOUNTER 2021-04-11 08:00 | Outpatient (CLI) | payer OTHER | END 2021-04-11 23:59 | LOC: LAB 08:00 | PROVIDERS: ATTEND Physician Assistant Medical | DX: N30.00 Acute cystitis without hematuria (principal) | CPT/HCPCS: 87086; 87181 ==

== ENCOUNTER 2021-06-13 14:49 | Outpatient (CLI) | payer OTHER ==
--- NOTE | 2021-06-13 15:47 | XRAY Report ---
PROCEDURE: Ankle 3 View RT INDICATIONS: R ANKLE/FOOT PX TECHNIQUE: 3 views of the ankle were acquired. COMPARISON: None FINDINGS: Bones: No fractures or dislocations. Ankle mortise is normally aligned. No suspicious bony lesions . Soft tissues: No tibiotalar joint effusion. Achilles tendon appears normal. IMPRESSION: No acute fracture. No osseous lesion. If symptoms and/or clinical suspicion for patholog y continue, further assessment with repeat plain films, or advanced imaging (e.g., CT, MRI, or bone s can) is recommended for further assessment. Reviewed by: Wil Villaseñor MD on 06/13/2021 3:46 PM PDT Approved by: Wil Villaseñor MD on 06/13/2021 3:46 PM PDT Station ID: [id number]
== END 2021-06-13 14:50 | disposition home or self-care (01) ==
LOC: DI.N 14:49
PROVIDERS: ATTEND Nurse Practitioner Family
DX: M25.571 Pain in right ankle and joints of right foot (principal)

== ENCOUNTER 2021-06-24 09:39 | Outpatient (CLI) | payer OTHER ==
[2021-06-24 14:15] LABS: BASOPHILS % (AUTO) 0.6 %; EOSINOPHILS # (AUTO) 0.1 10^3/uL (0.0-0.7); EOSINOPHILS % (AUTO) 2.8 %; HCT - HEMATOCRIT 42.2 % (37.0-47.0); HGB - HEMOGLOBIN 13.6 g/dL (12.0-16.0); LYMPHOCYTES # (AUTO) 1.9 10^3/uL (1.5-3.5); LYMPHOCYTES % (AUTO) 40.6 %; MEAN CORPUSCULAR HEMOGLOBIN 30.5 pg (27.0-31.0); MEAN CORPUSCULAR HGB CONC 32.2 g/dL (32.0-36.0); MEAN CORPUSCULAR VOLUME 94.6 fL (81.0-99.0); MEAN PLATELET VOLUME 10.5 fL (7.9-10.8); MONOCYTES # (AUTO) 0.6 10^3/uL (0.0-1.0); MONOCYTES % (AUTO) 13.2 %; NEUTROPHILS % (AUTO) 42.8 %; PLT - PLATELET COUNT 266 10^3/uL (130-450); RED BLOOD COUNT 4.46 10^6/uL (4.20-5.40); RED CELL DISTRIBUTION WIDTH 12.7 % (12.0-15.0); WHITE BLOOD COUNT 4.7 x10^3/uL (4.8-10.8)
[2021-06-24 14:39] LABS: ALBUMIN 4.3 g/dL (3.2-5.5); ALBUMIN/GLOBULIN RATIO 1.4 (1.0-2.2); ALKALINE PHOSPHATASE 65 IU/L (42-121); ALT ALANINE AMINOTRANSFERASE 27 IU/L (10-60); AST ASPARTATE AMINOTRANSFERASE 23 IU/L (10-42); BILIRUBIN,TOTAL 1.3 mg/dL (0.2-1.0); BUN - BLOOD UREA NITROGEN 15 mg/dL (6-20); CALCIUM 9.4 mg/dL (8.5-10.3); CARBON DIOXIDE - CO2 28 mmol/L (21-32); CHLORIDE 103 mmol/L (101-111); CHOL/HDL RATIO 4.5 (<4.4); CHOLESTEROL 254 mg/dL; CREATININE 0.7 mg/dL (0.4-1.0); GFR - MDRD 85 (>89); GLUCOSE 99 mg/dL (70-100); HDL CHOLESTEROL 57 mg/dL; LDL CHOLESTEROL,CALCULATED 180 mg/dL; LDL/HDL RATIO 3.2 (<4.4); POTASSIUM 4.5 mmol/L (3.5-5.0); SODIUM 140 mmol/L (135-145); TOTAL PROTEIN 7.3 g/dL (6.7-8.2); TRIGLYCERIDES 84 mg/dL; VLDL CHOLESTEROL 17 mg/dL
[2021-06-24 14:41] LABS: ESTIMATED AVERAGE GLUCOSE 117 mg/dL (70-100); HEMOGLOBIN A1c% 5.7 % (4.27-6.07)
[2021-06-24 14:47] LABS: THYROID STIMULATING HORMONE 1.59 uIU/mL (0.34-5.60)
[2021-06-24 16:54] LABS: BILIRUBIN,URINE NEGATIVE (NEGATIVE); GLUCOSE, URINE (UA) NEGATIVE (NEGATIVE); KETONES,URINE (UA) NEGATIVE (NEGATIVE); LEUKOCYTE ESTERASE, URINE TRACE (NEGATIVE); NITRITE,URINE NEGATIVE (NEGATIVE); OCCULT BLOOD,URINE NEGATIVE (NEGATIVE); PH,URINE 6.5 PH (5.0-7.5); PROTEIN,URINE NEGATIVE (NEGATIVE); UROBILINOGEN,URINE 0.2 (NORMAL) E.U./dL (NORMAL)
[2021-06-24 16:58] LABS: CLARITY,URINE CLEAR (CLEAR)
[2021-06-24 17:09] LABS: BACTERIA,URINE Rare /HPF (None Seen); RBC,URINE None Seen /HPF (0-5); SQUAMOUS EPITHELIAL CELL,UR RARE Squamous (<= Few)
== END 2021-06-24 09:40 | disposition home or self-care (01) ==
LOC: LAB.N 09:39
PROVIDERS: ATTEND Nurse Practitioner Family
DX: R00.2 Palpitations (principal); R42 Dizziness and giddiness; Z13.220 Encounter for screening for lipoid disorders; Z13.1 Encounter for screening for diabetes mellitus; Z13.21 Encounter for screening for nutritional disorder
CPT/HCPCS: 36415; 80050; 80061; 81001; 82306; 83036; 83721; 87086

== ENCOUNTER 2021-07-19 12:48 | Outpatient (CLI) | payer OTHER ==
--- NOTE | 2021-07-19 17:18 | MRI Report ---
PROCEDURE: Ankle RT W/O INDICATIONS: RIGHT ANKLE JOINT PAIN TECHNIQUE: Noncontrast Magnetic Resonance Imaging (MRI) of the ankle/hindfoot was performed utilizing the follow ing sequences on a 3.0 [employer] Siemens MRI: sagittal T1 spin echo, sagittal STIR, axial PD fast spin ec ho, axial T2 fast spin echo with fat saturation, coronal T2 spin echo with fat saturation, and PD fas t spin echo with fat saturation. COMPARISON: Ankle radiograph dated 06/13/2021. FINDINGS: Image quality: Diagnostic. Bones and joints: There is small amount of tibiotalar and subtalar joint effusion. Moderate midfoot and hindfoot joint osteoarthritic changes are seen with joint space narrowing, subchondral sclerosis and mild edema. No fracture or dislocation. No evidence of osteochondral injury of talar dome. Small osteochondral injur y involving weightbearing portion of posterior distal tibial plafond is seen and measures approximate ly 6 mm in size. Well-defined plantar calcaneal enthesophyte is seen. Medial structures: The deltoid ligament and the spring ligament are intact. The posterior tibialis is thickened at the level of distal talus/talonavicular joint with small amoun t of fluid distending tendon sheath suggestive of tendinosis and tenosynovitis. The flexor digitorum longus, and flexor hallucis longus tendons are intact and within normal limits. The posterior tibial neurovascular bundle appears normal within the tarsal tunnel, without extrinsic mass effect. Lateral structures: The anterior and posterior distal tibiofibular ligaments are also intact. The anterior talofibular li gament, posterior talofibular ligament, and calcaneofibular ligament are intact. The peroneus longus and peroneus brevis tendons are intact and otherwise unremarkable. The sinus tarsi demonstrates normal fatty signal. Anterior structures: The tibialis anterior, extensor hallucis longus, and extensor digitorum longus tendons appear intact. Posterior and plantar structures: Distal Achilles tendinosis at its posterior calcaneal insertion is seen. No Achilles tendon rupture. Thickened plantar fascia at its plantar calcaneal insertion is seen with surrounding edema suggestive of low to moderate grade plantar fasciitis. IMPRESSION: 1. Moderate midfoot and hindfoot joint osteoarthritis. Suggestion of 6 mm osteochondral injury involv ing posterior aspect of distal tibial plafond weightbearing portion. No osteochondral injury of talar dome. No fracture or dislocation. Well-defined plantar calcaneal enthesophyte. 2. Thickened plantar fascia at its calcaneal insertion with surrounding edema suggestive of plantar f asciitis. Distal Achilles tendinosis at its posterior calcaneal insertion. No Achilles tendon rupture . 3. [id number] tendinosis and tenosynovitis involving posterior tibialis tendon at the level of distal talus/talonavicular joint. Rest of the ankle tendons are intact. 4. Medial and lateral ankle ligaments are grossly intact. Reviewed by: Sage Rollins MD on 07/19/2021 5:16 PM PDT Approved by: Saeg Rollins MD on 07/19/2021 5:16 PM PDT Station ID: [id number]
== END 2021-07-19 12:49 | disposition home or self-care (01) ==
LOC: DI 12:48
PROVIDERS: ATTEND Nurse Practitioner Family
DX: M19.071 Primary osteoarthritis, right ankle and foot (principal); M77.31 Calcaneal spur, right foot; R93.6 Abnormal findings on diagnostic imaging of limbs; R93.89 Abnormal findings on diagnostic imaging of other specified body structures; M65.9 Synovitis and tenosynovitis, unspecified; M67.971 Unspecified disorder of synovium and tendon, right ankle and foot

== ENCOUNTER 2022-08-21 07:15 | Outpatient (CLI) | payer MEDICARE, OTHER | END 2022-08-21 07:30 | disposition home or self-care (01) | LOC: LAB.N 07:15 | PROVIDERS: ATTEND Registered Nurse | DX: N12 Tubulo-interstitial nephritis, not specified as acute or chronic (principal) | CPT/HCPCS: 87086 ==

== ENCOUNTER 2022-11-12 13:56 | Outpatient (CLI) | payer MEDICARE, OTHER ==
--- NOTE | 2022-11-13 11:46 | Mammography Report ---
BILATERAL DIGITAL SCREENING MAMMOGRAM 3D/2D: 11/12/2022 CLINICAL: Routine screening. Comparison is made to exams dated: 06/27/2021 mammogram, 11/18/2019 mammogram, 08/15/2018 mammogram, 07/31 mammogram, 05/19/2015 mammogram, and 05/05/2014 mammogram - [facility]. Both breasts are almost entirely fatty (category a/<25% glandular tissue). There is a benign focal asymmetry in the right breast. There also are benign calcifications in the l eft breast. Additionally, there are benign post operative findings in the left breast. No significant masses, calcifications, or other findings are seen in either breast. There has been no significant interval change. IMPRESSION: BENIGN There is no mammographic evidence of malignancy. A 1 year screening mammogram is recommended. Based on the Tyrer Cuzick model (a risk assessment model) the patients lifetime risk is 4.7% and her 10 year risk is 2.2%. According to the ACR, ACS, and NCCN guidelines, an annual breast MRI exam shelbie g with mammogram is recommended if the patients lifetime risk is 20% or greater. This exam was interpreted at Station ID: [id number]. NOTE: For mammograms, a report in lay terms will be sent to the patient. Approximately 15% of breast malignancies will not be visualized mammographically. In the management of a palpable breast mass, a negative mammogram must not discourage biopsy of a clinically suspicious lesion. Electronically Signed By: Deandre wolf/harjit:11/12/2022 16:11:27 letter sent: No_Letter ACR BI-RADS Category 2: Benign Finding(s) 3342F PARENCHYMAL PATTERN: (F) - The breast(s) demonstrate(s) diffuse fatty replacement. BI-RADS CATEGORY: (2) - 2 Mammogram [id number] 1 year screening LATERALITY: (B)
== END 2022-11-12 13:57 | disposition home or self-care (01) ==
LOC: DI.N 13:56
DX: Z12.31 Encounter for screening mammogram for malignant neoplasm of breast (principal)

== ENCOUNTER 2023-08-13 08:45 | Outpatient (CLI) | payer MEDICARE, OTHER | END 2023-08-13 09:00 | disposition home or self-care (01) | LOC: LAB.N 08:45 | PROVIDERS: ATTEND Nurse Practitioner | DX: R30.0 Dysuria (principal) | CPT/HCPCS: 87086 ==

== ENCOUNTER 2023-12-19 09:08 | Outpatient (CLI) | payer MEDICARE, OTHER ==
[2023-12-19 11:34] LABS: BASOPHILS % (AUTO) 0.7 %; EOSINOPHILS # (AUTO) 0.2 10^3/uL (0.0-0.7); EOSINOPHILS % (AUTO) 3.4 %; HCT - HEMATOCRIT 42.8 % (37.0-47.0); HGB - HEMOGLOBIN 13.8 g/dL (12.0-16.0); LYMPHOCYTES # (AUTO) 1.9 10^3/uL (1.5-3.5); LYMPHOCYTES % (AUTO) 32.3 %; MEAN CORPUSCULAR HGB CONC 32.2 g/dL (32.0-36.0); MEAN CORPUSCULAR VOLUME 96.2 fL (81.0-99.0); MEAN PLATELET VOLUME 10.6 fL (7.9-10.8); MONOCYTES # (AUTO) 0.6 10^3/uL (0.0-1.0); MONOCYTES % (AUTO) 9.4 %; NEUTROPHILS # (AUTO) 3.2 10^3/uL (1.5-6.6); PLT - PLATELET COUNT 261 10^3/uL (130-450); RED BLOOD COUNT 4.45 10^6/uL (4.20-5.40); RED CELL DISTRIBUTION WIDTH 12.7 % (12.0-15.0); WHITE BLOOD COUNT 5.9 x10^3/uL (4.8-10.8)
[2023-12-19 11:58] LABS: ALBUMIN 4.2 g/dL (3.2-5.5); ALBUMIN/GLOBULIN RATIO 1.5 (1.0-2.2); ALKALINE PHOSPHATASE 68 IU/L (42-121); ALT ALANINE AMINOTRANSFERASE 14 IU/L (10-60); AST ASPARTATE AMINOTRANSFERASE 16 IU/L (10-42); BUN - BLOOD UREA NITROGEN 18 mg/dL (6-20); CALCIUM 9.6 mg/dL (8.5-10.3); CARBON DIOXIDE - CO2 30 mmol/L (21-32); CHLORIDE 105 mmol/L (101-111); CHOL/HDL RATIO 4.2 (<4.4); CHOLESTEROL 254 mg/dL; CREATININE 0.6 mg/dL (0.6-1.3); GFR - MDRD 100 (>89); GLUCOSE 91 mg/dL (74-104); HDL CHOLESTEROL 60 mg/dL; LDL CHOLESTEROL,CALCULATED 183 mg/dL; LDL/HDL RATIO 3.1 (<4.4); POTASSIUM 4.4 mmol/L (3.5-4.5); SODIUM 141 mmol/L (135-145); TRIGLYCERIDES 53 mg/dL; VLDL CHOLESTEROL 11 mg/dL
[2023-12-19 12:04] LABS: THYROID STIMULATING HORMONE 1.43 uIU/mL (0.34-5.60)
== END 2023-12-19 09:09 | disposition home or self-care (01) ==
LOC: LAB.N 09:08
PROVIDERS: ATTEND Nurse Practitioner Family
DX: Z00.00 Encounter for general adult medical examination without abnormal findings (principal); E78.5 Hyperlipidemia, unspecified
CPT/HCPCS: 36415; 80053; 80061; 83721; 84443; 85025